=== PATIENT | male | born 1940 | race Caucasian/White ===

== ENCOUNTER → 2023-12-11 | Outpatient (CLI) | payer MEDICARE, SELFPAY ==
[2023-12-11 12:24] LABS: Absolute Lymphocyte Count 2.39 X10^3/uL (0.83-4.51); Absolute Neutrophil Count 3.7 X10^3/uL (2.0-7.7); Basophil# 0.05 X10^3/uL; Basophil% 0.7 % (0-1); Eosinophils% 5.5 % (0-5); Hematocrit 37.9 % (40-54); Lymphocyte # 2.39 X10^3/ul (0.83-4.51); Lymphocyte % 33.1 % (19-41); Mean Corp Hgb Conc 31.7 g/dL (32-36); Mean Corpuscular Hgb 28.9 pg (27.0-32.0); Mean Corpuscular Volume 91.3 fL (80-94); Mean Platelet Vol. 10.8 fl (6.2-12.0); Monocyte% 9.7 % (0-10); NRBC Flagged by Analyzer 0 % (0-5); Neutrophil # 3.66 X10^3/uL (2.7-7.7); Neutrophil % 50.7 % (47-70); Platelet Count 237 K/mm3 (150-450); RBC Distribution Width CV 13.2 % (11.6-14.6); RBC Distribution Width SD 44.4 fl (35.1-43.9); Red Blood Count 4.15 M/mm3 (4.6-6.2); White Blood Count 7.2 K/mm3 (4.4-11.0)
[2023-12-11 12:38] LABS: Erythrocyte Sedimentation Rate 5 mm/hr (0-20)
--- NOTE | 2023-12-11 12:40 | RAD_ITS ---
STUDY: X-RAY BONE SURVEY COMPLETE REASON FOR EXAM: Male, 83 years old. MGUS. TECHNIQUE: Frontal and lateral views of the cervical spine, frontal and lateral views of the skull, frontal and lateral views of the thoracic spine, frontal and lateral views of the lumbar spine, frontal chest, AP pelvis, frontal views of both upper extremities and frontal views of both lower extremities were obtained on 24 images. COMPARISON: None. FINDINGS: CHEST: The lungs are clear and expanded. There is no demonstrated pleural abnormality. Cardiomegaly with aortic tortuosity and calcification. Moderate diffuse osteopenia with no focal lytic lesions or acute abnormalities. PELVIS: Moderate osteopenia. Osteoarthritic changes of the sacroiliac joints, symphysis pubis and both hips. Lower lumbosacral spondylosis. No focal lytic lesions or acute abnormality. CERVICAL SPINE: Diffuse osteopenia. Diffuse moderate cervical spondylosis. No focal lytic lesions or acute abnormality. THORACIC SPINE: Diffuse osteopenia. Increased kyphosis. Anterior wedge compression deformities of mid thoracic vertebral bodies. Diffuse moderate cervical spondylosis. No focal lytic lesions or acute abnormality. LUMBAR SPINE: Marked diffuse osteopenia. Rotatory dextroscoliosis. Diffuse moderate lower thoracic and lumbosacral spondylosis. IVC filter. No focal lytic lesions or acute abnormality. RIGHT FEMUR: Diffuse moderate to marked osteopenia. No focal lytic lesions or acute abnormality. LEFT FEMUR: Diffuse moderate to marked osteopenia. No focal lytic lesions or acute abnormality. RIGHT HUMERUS: Diffuse moderate to marked osteopenia. No focal lytic lesions or acute abnormality. LEFT HUMERUS: Diffuse moderate to marked osteopenia. No focal lytic lesions or acute abnormality. SKULL: Diffuse moderate to marked osteopenia. No focal lytic lesions or acute abnormality. RAD/Bone Survey Comp(Axial&Append) IMPRESSION: Diffuse marked osteopenia. Diffuse moderate cervical, thoracic and lumbosacral spondylosis. Osteoarthritic changes. No focal lytic lesions or acute abnormality. Electronically Signed: Joesph Meadows MD at 10:33 EST Reading Location ID and State: [id number] [place] [address] , Service support ,
[2023-12-11 13:21] LABS: Vitamin B12 296 pg/mL (211-911)
[2023-12-11 13:24] LABS: CRP < 2.90 mg/L (0.0-3.0)
[2023-12-11 14:50] LABS: ALB/GLOB Ratio 0.9 RATIO (0.9-2.4); AST(SGOT) 16 U/L (15-37); Alanine Aminotransfer ALT/SGPT 15 U/L (16-61); Albumin, Serum 3.6 g/dL (3.2-5.0); Alkaline Phosphatase 68 U/L (45-117); Anion Gap 3 (5-15); BUN 23 mg/dL (7-18); BUN/Creat Ratio 24.5 RATIO (10-20); Calcium,Total 9.8 mg/dL (8.5-10.1); Chloride 111 mmol/L (98-107); Creatinine, Serum 0.94 mg/dL (0.70-1.30); EST Glomerular Filtration Rate 81 mL/min (>60); Est Glom Filt Rate - Afr Amer 98 mL/min (>60); Ferritin 141 ng/mL (26-388); Globulin 3.9 g/dL (2.2-4.2); Glucose 87 mg/dL (74-106); Iron 53 ug/dL (65-175); Iron Binding Capacity,Total 217 ug/dL (250-450); LDH 210 U/L (87-241); PERCENT IRON SATURATION 24.4 % (15.0-55.0); Potassium 4.1 mmol/L (3.5-5.1); Protein, Total 7.5 g/dL (6.4-8.2); Sodium Level 139 mmol/L (136-145)
[2023-12-12 19:07] LABS: Free Kappa Light Chains 75.8 mg/L (3.3-19.4); Free Lambda Light Chains 33.6 mg/L (5.7-26.3); Immunoglobulin A 226 mg/dL (61-437); Immunoglobulin G 1622 mg/dL (603-1613); Immunoglobulin M 106 mg/dL (15-143)
== END | disposition home or self-care (01) ==
PROVIDERS: PCP Internal Medicine Infectious Disease; Referring Provider Internal Medicine Medical Oncology; Visit Provider Internal Medicine Medical Oncology
DX: D47.2 Monoclonal gammopathy (principal); D64.9 Anemia, unspecified; R77.8 Other specified abnormalities of plasma proteins
CPT/HCPCS: 36415; 77075; 80053; 82607; 82728; 82746; 82784; 83540; 83550; 83615; 83883; 85025; 85652; 86140